=== PATIENT | male | born 2000 | race Caucasian/White ===

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

== ENCOUNTER 2019-06-28 14:46 | Emergency (ER) | payer BC ==
[~2019-06-28] VITALS: Ht 185.4 cm; Wt 81.8 kg
[~2019-06-28 14:46] MED LIST: ADDERALL XR30 MG PO
[2019-06-28 14:49] VITALS: BP 141/63; TEMP 99.5
[2019-06-28] MEDS ORDERED: PROZAC 10MG10 MG PO (14:55)
[2019-06-28] MEDS ORDERED: ADDERALL XR15 MG PO (14:56)
[2019-06-28] MEDS ORDERED: ADDERALL10 MG PO (14:56)
[2019-06-28 15:10] VITALS: PULSE 80
== END 2019-06-28 15:15 | disposition home or self-care (01) ==
LOC: COL.ER 14:46
DX: S61.012A Laceration without foreign body of left thumb without damage to nail, initial encounter (principal); W26.0XXA Contact with knife, initial encounter; Y92.009 Unspecified place in unspecified non-institutional (private) residence as the place of occurrence of the external cause